=== PATIENT | female | born 1940 | race Caucasian/White ===

== ENCOUNTER → 2023-12-21 11:12 | Outpatient (REF) | payer MEDICARE, BC, SELFPAY | LOC: HWRAD 11:12 | PROVIDERS: ATTENDING PHYSICIAN Podiatrist; FAMILY PHYSICIAN Family Medicine | DX: R22.9 Localized swelling, mass and lump, unspecified (principal); R22.41 Localized swelling, mass and lump, right lower limb | CPT/HCPCS: 76882 ==